=== PATIENT | female | born 2000 | race Caucasian/White ===

== ENCOUNTER 2019-11-14 11:44 | Emergency (ER) | payer MEDICAID, SELFPAY ==
[2019-11-14 12:02] VITALS: BP 111/71; PULSE 77; RESP 16; TEMP 36.8; O2SAT 100
--- NOTE | 2019-11-14 12:43 | ED.EAR ---
HPI - Ear Problem General Chief complaint: Ear Stated complaint: Ear Pressure Time Seen by Provider: 11/14/19 12:44 Source: patient Mode of arrival: ambulatory Limitations: no limitations History of Present Illness HPI Narrative: Tamra Samuel is a 18-year-old female with no PMH who comes to urgent care with complaints of ear pressure; states that she has had increased sinus pressure x3 days that is not well managed with nasal spray and NyQuil. She has had recurrent sinus headaches but that her ears feel like they need to pop Related Data Allergies Allergy/AdvReac Type Severity Reaction Status Date / Time latex Allergy Unknown Verified 04/10/19 12:47 Review of Systems Review of Systems: Narrative: CONSTITUTIONAL: Denies fever, chills, sweats. EYES: Denies visual changes, redness, discharge. ENT: Denies rhinorrhea, has congestion, sore throat, has bilateral otalgia. CARDIOVASCULAR: Denies chest pain, palpitations, edema. RESPIRATORY: Denies dyspnea, wheezing, mild cough GASTROINTESTINAL: Denies abdominal pain, nausea, vomiting, diarrhea. GENITOURINARY: Denies dysuria, hematuria, abnormal discharge SKIN: Denies rash or itching. MUSCULOSKELETAL: Denies acute back pain, joint pain, or myalgia. NEUROLOGIC: Denies numbness, or focal weakness. PSYCHIATRIC: Denies anxiety or depression. [facility] Family History Family History (Updated 11/14/19 @ 12:53 by Stefanie Gonzalez CNP) Other No active medical problems Social History Social History (Updated 11/14/19 @ 12:53 by Stefanie Gonzalez CNP) Living arrangements: alone Occupation/Education: student Comments At time of signature, I agree with nursing past medical, surgical, social and family history. There is no relevant family history pertinent to the presenting complaint. Exam Narrative: Exam Narrative: GENERAL: This is a well-nourished, well-developed patient, in no apparent distress. HEAD: normocephalic, atraumatic. EYES Sclera clear/white. Vision is grossly intact. EARS: External ears normal, auditory canals clear and without drainage, TMs erythema with small effusion on right. Hearing grossly intact. NOSE: External nose normal with no obvious nasal discharge, nares without redness, no rhinorrhea. Has tender maxillary and frontal sinuses THROAT: Mucous membranes moist, posterior pharynx erythema, tender submandibular lymph nodes NECK: Neck supple, non-tender CARDIOVASCULAR: Regular rate and rhythm without murmurs, gallops, or rubs. RESPIRATORY: Clear to auscultation. Breath sounds equal bilaterally. No wheezes, rales, or rhonchi. GASTROINTESTINAL: Abdomen soft, non-tender, SKIN: warm, intact with no suspicious lesions or rash, good texture and turgor. NEURO: awake, alert, and oriented to person, place and time. There were no obvious focal neurologic abnormalities. Steady gait EXTREMITIES: Normal range of motion. No edema. . BACK: Nontender without deformity or crepitance. . Course Course Emergency Course: Started on Mucinex and prednisone Vital Signs Vital signs: Vital Signs Temperature 98.2 F 11/14/19 12:02 Pulse Rate 77 11/14/19 12:02 Respiratory Rate 16 11/14/19 12:02 Blood Pressure 111/71 11/14/19 12:02 Pulse Oximetry 100 11/14/19 12:02 Temperature 98.2 F 11/14/19 12:02 Pulse Rate 77 11/14/19 12:02 Respiratory Rate 16 11/14/19 12:02 Blood Pressure 111/71 11/14/19 12:02 Pulse Oximetry 100 11/14/19 12:02 Medical Decision Making Differential Diagnosis Differential Diagnosis: Pharyngitis versus otitis media versus headache Vital Signs Vital Signs: Vital Signs Temperature 98.2 F 11/14/19 12:02 Pulse Rate 77 11/14/19 12:02 Respiratory Rate 16 11/14/19 12:02 Blood Pressure 111/71 11/14/19 12:02 Pulse Oximetry 100 11/14/19 12:02 Temperature 98.2 F 11/14/19 12:02 Pulse Rate 77 11/14/19 12:02 Respiratory Rate 16 11/14/19 12:02 Blood Pressure 111/71 11/14/19 12:02 Pul
== END 2019-11-14 13:04 | disposition home or self-care (01) ==
PROVIDERS: Emergency Provider Nurse Practitioner; PCP Family Medicine
DX: J01.00 Acute maxillary sinusitis, unspecified (principal); Z86.61 Personal history of infections of the central nervous system
CPT/HCPCS: 99213; G0463

== ENCOUNTER 2021-05-07 15:12 | Emergency (ER) | payer OTHER, SELFPAY ==
[2021-05-07 15:26] VITALS: BP 106/67; PULSE 92; RESP 20; TEMP 36.5; O2SAT 97
--- NOTE | 2021-05-07 18:39 | ED.GENADULT ---
HPI - General Adult General Chief complaint: Ear Stated complaint: ear infection Source: patient Mode of arrival: ambulatory Limitations: no limitations History of Present Illness HPI narrative: 20 y/o female. PMHx: None reported. Presents to [facility] clinic with acute complaints of RT side Ear ache, worsening in past 24 hours. Client reports to have been swimming in [place] 1 day ago, prior to manifestation onset. No fever, chills. No GUARDADO, congestion, sore throat, cough. No auditory trauma, or hearing changes. Pt is w/o additional acute complaints of illness upon exam. Related Data Allergies Allergy/AdvReac Type Severity Reaction Status Date / Time latex Allergy Unknown Rash Verified 05/07/21 15:42 Review of Systems Review of Systems: CONSTITUTIONAL: Denies fever, chills, sweats. EYES: Denies visual changes, redness, discharge. ENT: Denies rhinorrhea, congestion, sore throat. Otalgia RT. CARDIOVASCULAR: Denies chest pain, palpitations, edema. RESPIRATORY: Denies dyspnea, wheezing, cough GASTROINTESTINAL: Denies abdominal pain, nausea, vomiting, diarrhea. GENITOURINARY: Denies dysuria, hematuria, abnormal discharge SKIN: Denies rash or itching. MUSCULOSKELETAL: Denies acute back pain, joint pain, or myalgia. NEUROLOGIC: Denies numbness, or focal weakness. PSYCHIATRIC: Denies anxiety or depression. All systems reviewed & are unremarkable except as noted in HPI and below PMFSH Family History Family History Other No active medical problems Social History Social History Gender identity (if verbalized by the patient): Female Exam Narrative: GENERAL: This is a well-nourished, well-developed adult, in no apparent distress. HEAD: normocephalic, atraumatic. EYES: PERRL. Sclera clear/white. EARS: External ears normal. LT ear normal. RT auditory canal with erythema and mild yellow discharge. TM visualized and bulging. No FB or obstruction. Positive pain w/tragus manipulation. Hearing remains intact. NOSE: External nose normal. Positive Rhinorrhea, no obstruction, nares patent. THROAT: Mucous membranes moist, posterior pharynx clear. No exudates. NECK: Neck supple, non-tender without lymphadenopathy, masses or thyromegaly. CARDIOVASCULAR: Regular rate and rhythm without murmurs, gallops, or rubs. RESPIRATORY: Clear to auscultation. Breath sounds equal bilaterally. No wheezes, rales, or rhonchi. GASTROINTESTINAL: Abdomen soft, non-tender, nondistended. Bowel sounds are active. No guarding. SKIN: warm, intact with no suspicious lesions or rash, good texture and turgor. NEURO: Alert, active, and age appropriate. No focal neurologic deficits. EXTREMITIES: Negative. Course Course Emergency Course: -20 y/o female. PMHx none reported. -RT side otalgia, non-traumatic. -No auditory or neuro deficits. -Physical exam consistent with suspect Otitis Media. Proceed accordingly. Vital Signs Vital signs: Vital Signs Temperature 36.5 C 05/07/21 15:26 Pulse Rate 92 05/07/21 15:26 Respiratory Rate 20 05/07/21 15:26 Blood Pressure 106/67 05/07/21 15:26 Pulse Oximetry 97 05/07/21 15:26 Temperature 36.5 C 05/07/21 15:26 Pulse Rate 92 05/07/21 15:26 Respiratory Rate 20 05/07/21 15:26 Blood Pressure 106/67 05/07/21 15:26 Pulse Oximetry 97 05/07/21 15:26 Medical Decision Making MDM Narrative Medical decision making narrative: -Neomycin ATB Gtts affected ear as directed. -May resume additional OTC remedies prn. -PCP F/U 1 week. -ER with emergent health status changes. Pt agrees. Differential Diagnosis Differential Diagnosis: Differential Diagnosis: Consideration of the following conditions may be warranted for the presenting problem, they are not final diagnoses: Otitis media, otitis externa, perforated TM, foreign body, cerumen impaction, dental or intraoral infec
== END 2021-05-07 15:54 | disposition home or self-care (01) ==
PROVIDERS: Emergency Provider Nurse Practitioner Adult Health; PCP Family Medicine
DX: H66.91 Otitis media, unspecified, right ear (principal); H60.331 Swimmer's ear, right ear
CPT/HCPCS: 99213; G0463

== ENCOUNTER 2022-05-02 13:54 | Outpatient (CLI) | payer OTHER, SELFPAY | END 2022-05-02 13:55 | disposition home or self-care (01) | LOC: ANHAUDIO 13:55 | PROVIDERS: PCP Nurse Practitioner Adult Health; Visit Provider Otolaryngology | DX: H90.41 Sensorineural hearing loss, unilateral, right ear, with unrestricted hearing on the contralateral side (principal) | CPT/HCPCS: 92557; 92567 ==

== ENCOUNTER 2023-02-26 14:46 | Emergency (ER) | payer OTHER, SELFPAY ==
--- NOTE | ~2023-02-26 | XR_ITS ---
EXAM: XR ankle LT min 3V DATE: 02/26/2023 15:09 HISTORY: left lateral/posterior ankle pain ? etiology . COMPARISON: None available. FINDINGS: Normal mineralization. No fracture or dislocation. No lytic or blastic lesion. Joint space s are maintained. No erosion or periosteal change. Soft tissues within normal limits. IMPRESSION: No acute osseous finding in the left ankle. Reviewed, dictated and finalized at location K.
[2023-02-26 14:59] VITALS: BP 125/67; PULSE 80; RESP 16; TEMP 36.8; O2SAT 98
[2023-02-26 15:01] VITALS: BP 125/67; PULSE 80; RESP 16; TEMP 36.8; O2SAT 98
--- NOTE | 2023-02-26 15:13 | ED.GENADULT ---
HPI - General Adult General Chief complaint: Extremity Injury, Lower Stated complaint: Left Ankle Pain Source: patient Mode of arrival: ambulatory Limitations: no limitations History of Present Illness HPI narrative: Patient presents for evaluation of left ankle pain. Symptom onset 2 days ago. She indicates her pain started after she was going up and down steps at work frequently. She believes she may have twisted her left ankle in the process. She rates her pain 7/10 severity, without descriptive quality. No paresthesias. She tried taking ibuprofen and naproxen for symptoms. Movement makes her pain worse. No additional complaints or concerns. Related Data Home Medications Medication Instructions Recorded Confirmed buspirone 7.5 mg tablet 7.5 mg PO BID 04/19/22 02/26/23 dextroamphetamine-amphetamine ER 20 mg PO DAILY 04/19/22 02/26/23 20 mg 24hr capsule,extend release Allergies Allergy/AdvReac Type Severity Reaction Status Date / Time latex adhesive Allergy Unknown Unknown Uncoded 04/19/22 11:54 Review of Systems Review of Systems: CONSTITUTIONAL: Denies fever, chills, or sweats. EYES: Denies visual changes, redness, or discharge. ENT: Denies rhinorrhea, congestion, sore throat, or otalgia. CARDIOVASCULAR: Denies chest pain, palpitations, or edema. RESPIRATORY: Denies cough or dyspnea. GASTROINTESTINAL: Denies abdominal pain, nausea, vomiting, or diarrhea. GENITOURINARY: Denies dysuria or hematuria. SKIN: Denies rash or itching. MUSCULOSKELETAL: Reports left ankle pain and swelling NEUROLOGIC: Denies headache, numbness, dizziness, or weakness. PSYCHIATRIC: Denies anxiety or depression. [facility] Past Medical History Medical History (Updated 02/26/23 @ 15:31 by Dontae Altamirano, WALE, ) No pertinent past medical history Surgical History Surgical History History of tonsillectomy and adenoidectomy History of tympanostomy tube placement Family History Family History Father Alcoholism Skin cancer Hypertension Depression Mother Depression Sibling Depression Grandparent Alcoholism Cancer Hypertension Heart disease Osteoporosis Other No active medical problems Social History Social History Smoking status: Never smoker Alcohol intake: current Substance use: current Living arrangements: alone Occupation/Education: student Gender identity (if verbalized by the patient): Female Exam Narrative: GENERAL: Well-appearing, well-nourished, and in no acute distress. HEAD: Normocephalic, atraumatic. EYES: PERRLA and EOMI. ENT: Nares clear, no rhinorrhea or epistaxis. Mucous membranes moist. Oropharynx without tonsillar hypertrophy exudate or other lesions. Bilateral TMs pearly mccarthy nonbulging NECK: Supple. No adenopathy or masses. No carotid bruits or JVD CHEST: Clear to auscultation. No respiratory distress. No wheezes rales or rhonchi HEART: Regular rate and rhythm. No murmur heard. Normal peripheral pulses. ABDOMEN: Soft, nontender, nondistended, normal active bowel sounds. EXTREMITIES: Able to dorsi and plantar flex the left foot. Able to wiggle all digits of the left foot. Mild tenderness over the left lateral malleolus. No crepitus or deformity. Sensation intact. SKIN: Warm, dry, no rash. NEURO: No focal deficits. Alert and oriented x3. PSYCH: Normal mood and affect. Course Course Emergency Course: This is a 22-year-old female who presented for evaluation of left ankle pain. X-ray negative. Exam consistent with sprain. Advised on RICE therapy. Provided with teresita wrap. NSAIDs for pain. follow-up outpatient for further evaluation treatment and go to the ER for intractable pain. Patient in agreement with plan of care. Level of Care: Express Care Visit Vital Signs
== END 2023-02-26 15:37 | disposition home or self-care (01) ==
PROVIDERS: Emergency Provider Nurse Practitioner; PCP Family Medicine
DX: S93.402A Sprain of unspecified ligament of left ankle, initial encounter (principal); X50.3XXA Overexertion from repetitive movements, initial encounter
CPT/HCPCS: 73610; 99213; G0463

== ENCOUNTER 2025-03-31 14:18 | Outpatient (CLI) | payer OTHER, SELFPAY | END 2025-03-31 14:19 | disposition home or self-care (01) | LOC: ANHAUDIO 14:18 | PROVIDERS: PCP Family Medicine; Visit Provider Otolaryngology | DX: H90.41 Sensorineural hearing loss, unilateral, right ear, with unrestricted hearing on the contralateral side (principal) | CPT/HCPCS: 92557; 92567 ==

== ENCOUNTER 2025-04-02 07:40 | Emergency (ER) | payer OTHER, SELFPAY ==
[2025-04-02 07:44] VITALS: BP 141/76; PULSE 85; RESP 18; TEMP 36.6; O2SAT 99
--- NOTE | 2025-04-02 08:54 | ED_ITS ---
HPI - General Adult General Chief complaint: Skin/Abscess/Foreign Body Stated complaint: infection on the R index finger Time Seen by Provider: 04/02/25 08:11 History of Present Illness HPI narrative: This is a 24-year-old female presenting with infection to her right index finger. Started as a small blister yesterday and has now spread to a clear blister surrounding her nail bed. She has some swelling to the finger but no pain on flexion, tenderness over the flexor tendon or systemic signs of illness. 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 Related Data Allergies Allergy/AdvReac Type Severity Reaction Status Date / Time latex adhesive Allergy Unknown Unknown Uncoded 04/02/25 07:41 [facility] Past Medical History Medical History No pertinent past medical history Surgical History Surgical History History of tympanostomy tube placement History of tonsillectomy and adenoidectomy Family History Family History Father Alcoholism Skin cancer Hypertension Depression Mother Depression Sibling Depression Grandparent Alcoholism Cancer Hypertension Heart disease Osteoporosis Other No active medical problems Social History Social History Smoking status: Never smoker Alcohol intake: current Substance use: current Substance use type: marijuana Lack of Transportation: No Lack of Food: Never True Current Housing: I Have Housing Concerned About Future Housing: No Difficulty Paying Gas/Electric Bills: No Difficulty Paying for Meds: No Currently Unemployed: No Education: High School Diploma/GED Difficulty w/ Childcare or Family Care: No Living arrangements: alone Occupation/Education: student Gender identity (if verbalized by the patient): Female Exam Narrative: APPEARANCE: No apparent distress. Head: atraumatic. EYES: EOMI, NOSE: Atraumatic NECK: Trachea midline RESPIRATORY: No increased rate of breathing CARDIOVASCULAR: RRR, ABDOMINAL: Non-distended MUSCULOSKELETAl: No obvious deformities NEURO: Alert. Moving 4/4 extremities SKIN:: Focal exam of the right index finger showed clear bullae over the medial and lateral aspect of the fingernail. No swelling over the pad of the finger. No tenderness over the flexor tendon. The finger is not held in flexion. No pain on extension PSYCHIATRIC: Normal affect Course Vital Signs Vital signs: Vital Signs Temperature 97.9 F 04/02/25 07:44 Pulse Rate 85 04/02/25 07:44 Respiratory Rate 18 04/02/25 07:44 Blood Pressure 141/76 H 04/02/25 07:44 Pulse Oximetry 99 04/02/25 07:44 Oxygen Delivery Room Air 04/02/25 07:44 Temperature 97.9 F 04/02/25 07:44 Pulse Rate 85 04/02/25 07:44 Respiratory Rate 18 04/02/25 07:44 Blood Pressure 141/76 H 04/02/25 07:44 Pulse Oximetry 99 04/02/25 07:44 Oxygen Delivery Room Air 04/02/25 07:44 Procedures Abscess I/D hand: Date of Incision: 04/02/25 Side (if applicable): right Local Anesthetic: bupivacaine 0.25% Amount of anesthesia used (mL): 6 Technique: incised with #11 blade Amount of fluid expressed (mL): 4 Irrigation: No Packing used?: none I&D Results: Pus and Blood Complications: pain Medical Decision Making MDM Narrative Medical decision making narrative: -Course: 24-year-old female presenting with paronychia. It was incised and drained. Patient be discharged on Bactrim. Return precautions. Primary care follow-up -DDX includes but is not limited to: Paronychia, felon, cellulitis Vital Signs Vital Signs: Vital Signs Temperature 97.9 F 04/02/25 07:44 Pulse Rate 85 04/02/25 07:44 Respiratory Rate 18 04/02/25 07:44 Blood Pressure 141/76 H 04/02/25 07:44 Pulse Oximetry 99 04/02/25 07:44 Oxygen Delivery Room Air 04/02/25 07:44 Temperature 97.9 F 04/02/25 07:44 Pulse Rate 85 04/02/25 07:44 Respiratory Rate 18 04/02/25 07:44 Blood Pressure 141/76 H 04/02/25 07:44 Pulse Oximetry 99 04/02/25 07:44 Oxygen Delivery Room Air 04/02/25 07:44 Discharge Plan Discharge Clinical Impression: Paronychia Patient Disposition: Home Condition: Stable Instructions: Antibiotic Form, Paronychia (ED) Additional Instructions: You were seen in the emergency department for paronychia. Please complete the antibiotics as instructed. Please follow-up with your primary care physician in next 3-5 days to ensure resolution. If you feel that the infection is getting worse, spreading up your finger you can return to the ED for re-evaluation. Patient Language: [place] Islander Prescriptions: New sulfamethoxazole-trimethoprim 800-160 mg tablet 1 tablet PO Q12H Qty: 14 0RF No Action fluticasone propionate [Flonase Allergy Relief] 50 mcg/actuation spray,suspension 2 spray intranasal BID Qty: 16 12RF Rx Instructions: administer into each nostril. Aim back/up/out Follow-up/Referrals: Willam Jaramillo MD [Primary Care Provider] -
--- NOTE | 2025-04-02 09:49 | PC.NURSE ---
Pt. able to ambulate to bathroom to provide urine sample for bedside
[2025-04-02 10:44] LABS: BEDSIDEPREGUCG Negative (Negative)
== END 2025-04-02 10:57 | disposition home or self-care (01) ==
PROVIDERS: Emergency Provider Emergency Medicine; PCP Family Medicine
DX: L03.011 Cellulitis of right finger (principal)
CPT/HCPCS: 10060; 26010; 81025; 99283